=== PATIENT | female | born 1985 | race Caucasian/White ===

== ENCOUNTER 2021-03-22 10:33 | Emergency (ER) | payer BC, SELFPAY ==
--- NOTE | ~2021-03-22 | XR_ITS ---
EXAMINATION: XR ribs RT 2V EXAM DATE: 03/22/2021 11:23 INDICATION: Right side rib pain after twisting injury. TECHNIQUE: Frontal projection of the upper right ribs, frontal projection of the lower right ribs, ob lique projection of the right ribs, without chest x-ray(s) for interpretation. Correlation is made to Chest x-ray 11/29/2010 FINDINGS: There are no displaced acute right rib fractures identified. There is no soft tissue abno rmality seen. IMPRESSION: No displaced right rib fractures. Reviewed, dictated and finalized at location B.
[2021-03-22 10:45] VITALS: BP 120/100; PULSE 100; RESP 18; TEMP 36.7; O2SAT 100
--- NOTE | 2021-03-22 11:12 | ED.GENADULT ---
HPI - General Adult General Chief complaint: Unspecified Stated complaint: Rt side pain Source: patient Mode of arrival: ambulatory Limitations: no limitations History of Present Illness HPI narrative: Patient is a 36-year-old female who presents complaining of right rib/flank pain. She reports pain for approximately 8 days. She reports initially playing softball and believes that she twisted wrong . She reports awaking next morning with 10 out of 10 pain, reports nausea and vomiting x1 which has since resolved. She reports pain continues at approximately 3/10 and increases with movement. She reports taking [id number] medications with limited relief, reports using ice, heat etc. She denies abdominal pain, denies urinary complaints. She denies significant medical history. MD complaint: Rib pain Related Data Home Medications Medication Instructions Recorded Confirmed clonazepam 03/22/21 dextroamphetamine-amphetamine PO 03/22/21 dextroamphetamine-amphetamine PO 03/22/21 [Adderall XR] Allergies Allergy/AdvReac Type Severity Reaction Status Date / Time lansoprazole AdvReac Unknown Skin Verified 03/22/21 10:53 Reaction naproxen AdvReac Unknown nausea Verified 03/22/21 10:53 Review of Systems Review of Systems: CONSTITUTIONAL: Denies fever, chills, or sweats. EYES: Denies visual changes, redness, or discharge. ENT: Denies rhinorrhea, congestion, sore throat, or otalgia. CARDIOVASCULAR: Denies chest pain, palpitations, or edema. RESPIRATORY: Denies cough or dyspnea. GASTROINTESTINAL: Denies abdominal pain, nausea, vomiting, or diarrhea. GENITOURINARY: Denies dysuria or hematuria. SKIN: Denies rash or itching. MUSCULOSKELETAL: Reports right rib pain NEUROLOGIC: Denies headache, numbness, dizziness, or weakness. PSYCHIATRIC: Denies anxiety or depression. [facility] Family History Family History Other Family history of kidney stones Family history of malignant neoplasm Social History Social History Smoking status: Former smoker Alcohol intake: current Comments At the time of signature, I have reviewed and agree with nursing past medical, surgical, social, and family history unless otherwise noted. Please see nursing chart for further information. There is no relevant family history pertinent to the presenting complaint. Exam Narrative: GENERAL: Well-appearing, well-nourished, and in no acute distress. HEAD: Normocephalic, atraumatic. EYES: EOMI. No redness or drainage. Conjunctiva are normal. ENT: Mucous membranes pink and moist. CHEST: No respiratory distress. Clear to auscultation. HEART: Regular rate and rhythm. GI: Soft, nontender without rebound, or guarding. No distention. MUSCULOSKELETAL: Tenderness with palpation to right ribs EXTREMITIES: Normal range of motion. NEURO: No focal deficits. Alert and oriented x3. Gait steady. PSYCH: Normal affect. No signs of depression or anxiety. Course Vital Signs Vital signs: Vital Signs Temperature 36.7 C 03/22/21 10:45 Pulse Rate 100 03/22/21 10:45 Respiratory Rate 18 03/22/21 10:45 Blood Pressure 120/100 H 03/22/21 10:45 Pulse Oximetry 100 03/22/21 10:45 Temperature 36.7 C 03/22/21 10:45 Pulse Rate 100 03/22/21 10:45 Respiratory Rate 18 03/22/21 10:45 Blood Pressure 120/100 H 03/22/21 10:45 Pulse Oximetry 100 03/22/21 10:45 Reviewed-patient is informed that they may have pre-hypertension or hypertension based on a blood pressure reading. I recommend the patient call the primary care provider listed on their discharge instructions or a physician of their choice this week to arrange follow-up for further evaluation of possible pre-hypertension or hypertension. Medical Decision Making MDM Narrative Medical decision making narrative: Patient's x-ray ribs shows no acute injury. Patient has 3 less le
[2021-03-22] MEDS: KETOROLAC (*BKC) 60 MG/2 ML VIAL IM (12:03)
== END 2021-03-22 12:19 | disposition home or self-care (01) ==
PROVIDERS: Emergency Provider Nurse Practitioner
DX: R07.81 Pleurodynia (principal); Z87.891 Personal history of nicotine dependence
CPT/HCPCS: 71100; 81003; 96372; 99213; G0463; J1885

== ENCOUNTER 2021-12-03 11:29 | Emergency (ER) | payer OTHER, SELFPAY ==
[2021-12-03 11:41] VITALS: BP 119/78; PULSE 66; RESP 18; TEMP 36.4; O2SAT 100
--- NOTE | 2021-12-03 12:05 | ED.GENADULT ---
HPI - General Adult General Chief complaint: Abdominal Pain Stated complaint: Lower Rt Abdominal Pain Time Seen by Provider: 12/03/21 11:48 Source: patient Mode of arrival: ambulatory Limitations: no limitations History of Present Illness HPI narrative: 36-year-old female who presents to [facility] with complaints of right lower abdominal pain which started last night with increased intensity today. Patient reports she is nauseated has not had any vomiting did have 1 episode of diarrhea this morning. Patient reports she tried to eat a couple crackers and drink a little water around 1130 but nausea prevented any further attempts to eat. Patient has palpable right lower abdominal pain with McBurney point tenderness rates pain 8 out of 10. Patient has had cholecystectomy in the past and also tonsillectomy. MD complaint: Right lower abdominal pain Onset (ago): hour(s) (Last night) Severity scale (1-10): 8 Exacerbating factors: movement Treatments prior to arrival: NSAID Related Data Home Medications Medication Instructions Recorded Confirmed clonazepam 0.5 mg tablet 1 tablet BID 12/03/21 12/03/21 dextroamphetamine-amphetamine 10 1 tablet BID 12/03/21 12/03/21 mg tablet escitalopram oxalate 20 mg tablet 1 tablet BID 12/03/21 12/03/21 Allergies Allergy/AdvReac Type Severity Reaction Status Date / Time lansoprazole AdvReac Unknown Skin Verified 12/03/21 11:48 Reaction naproxen AdvReac Unknown nausea Verified 12/03/21 11:48 Review of Systems Review of Systems: CONSTITUTIONAL: Denies fever, chills, or sweats. EYES: Denies visual changes, redness, or discharge. ENT: Denies rhinorrhea, congestion, sore throat, or otalgia. CARDIOVASCULAR: Denies chest pain, palpitations, or edema. RESPIRATORY: Denies cough or dyspnea. GASTROINTESTINAL: Positive for right lower abdominal pain, nausea, no vomiting, 1 episode of diarrhea this morning. GENITOURINARY: Denies dysuria or hematuria. SKIN: Denies rash or itching. MUSCULOSKELETAL: Denies back pain, joint pain, or myalgia. NEUROLOGIC: Denies headache, numbness, or weakness. PSYCHIATRIC: Positive history of anxiety or depression. [facility] Past Medical History Medical History (Updated 12/03/21 @ 15:00 by Jennifer Pérez NP) ADHD (attention deficit hyperactivity disorder) Anxiety Depression Surgical History Surgical History (Updated 12/03/21 @ 12:18 by Jennifer Pérez NP) History of cholecystectomy History of tonsillectomy Family History Family History Other Family history of kidney stones Family history of malignant neoplasm Social History Social History Smoking status: Former smoker Alcohol intake: current Comments At time of signature, agree with nursing past medical, surgical, social and family history. There is no relevant family history pertinent to the presenting complaint Exam Narrative: GENERAL: Ill-appearing, well-nourished, and in no acute distress. HEAD: Normocephalic, atraumatic. EYES: PERRLA and EOMI. ENT: Nares clear, no rhinorrhea or epistaxis. Mucous membranes moist.TM's normal with good light reflex, throat pink NECK: Supple. No lymphadenopathy CHEST: Clear to auscultation. No respiratory distress.SAO2 100% on room air HEART: Regular rate and rhythm. No murmur heard. Normal peripheral pulses. ABDOMEN: Soft,tender right lower quadrant with McBurney point tenderness, nondistended, normal active bowel sounds. EXTREMITIES: Normal range of motion. No edema. SKIN: Warm, dry, no rash. NEURO: No focal deficits. Alert and oriented x3. Course Course Level of Care: Express Care Visit Vital Signs Vital signs: Vital Signs Temperature 36.4 C L 12/03/21 11:41 Pulse Rate 66 12/03/21 11:41 Respiratory Rate 18 12/03/21 11:41 Blood Pressure 119/78 12/03/21 11:41 Pulse Oximetry 100 12/03/21 11:41 Oxygen Delivery
== END 2021-12-03 12:12 | disposition short-term general hospital (02) ==
PROVIDERS: Emergency Provider Registered Nurse
DX: R10.31 Right lower quadrant pain (principal); Z87.891 Personal history of nicotine dependence; F90.9 Attention-deficit hyperactivity disorder, unspecified type; F41.9 Anxiety disorder, unspecified; F32.A Depression, unspecified
CPT/HCPCS: 99212; 99213; G0463

== ENCOUNTER 2021-12-03 12:25 | Inpatient (IN) | payer OTHER, SELFPAY ==
[2021-12-03] VITALS (15 sets, daily range): BP systolic 102–129; BP diastolic 50–86; PULSE 58–96; RESP 10–22; TEMP 36.7–37.3; O2SAT 99–100; BMI 17.6
--- NOTE | ~2021-12-03 | CT_ITS ---
EXAMINATION: CT abdomen pelvis w con INDICATION: Right lower quadrant pain TECHNIQUE: Computed tomographic images of the abdomen and pelvis were obtained after the administrati on of 98 cc of Omnipaque 300 intravenous contrast. The dose-length product (DLP) was 181.72 mGy-cm. A utomated exposure control and iterative reconstruction technique were employed. COMPARISON: 11/23/2013 FINDINGS: The lung bases are clear. The heart size is normal. The liver, spleen, pancreas, and adrena l glands are normal. There are changes of interval cholecystectomy. There is a 7 mm stone of the dist al right ureter which causes moderate hydroureteronephrosis. There is decreased perfusion of the righ t kidney compared to the left. Urothelial enhancement is seen in the distal ureter. There is a 1.5 cm cyst of the right kidney. The left kidney is unremarkable. No pathologically enlarged abdominal or p elvic lymph nodes are identified. There is no free intraperitoneal gas or evidence of bowel obstructi on. There is a small volume of free fluid in the pelvis. The appendix is normal. IMPRESSION: 1. 7 mm stone distal right ureter causing moderate hydroureteronephrosis. Urothelial enhancement and decreased perfusion of the right kidney are consistent with superimposed urinary tract infection/pyel onephritis. Reviewed, dictated and finalized at location A. IMPRESSION: 1. 7 mm stone distal right ureter causing moderate hydroureteronephrosis. Uroth elial enhancement and decreased perfusion of the right kidney are consistent wi th superimposed urinary tract infection/pyelonephritis.
--- NOTE | ~2021-12-03 | XR_ITS ---
EXAMINATION: XR stent kub - surgery DATE: 12/03/2021 17:24 CDT INDICATION: RIGHT STENT PLACEMENT . TECHNIQUE: 6 fluoroscopic images of the right abdomen were obtained during stent placement performed by the surgeon. I was not present in the operating room. Fluoroscopy exposure time was 28.1 seconds. Cumulative dose was 0.77690 mGy2. COMPARISON: CT abdomen pelvis 11/25/2021 FINDINGS: Contrast fills a moderately dilated right collecting system, with subsequent stent placement. Proxima l coil in the distal portion of the right renal pelvis. Distal coil is situated over the bladder. IMPRESSION: Fluoroscopic documentation of right ureteral stent placement. Please refer to the operative note for complete procedural details. . Reviewed, dictated and finalized at location K. IMPRESSION: Fluoroscopic documentation of right ureteral stent placement. Please refer to isabela robert operative note for complete procedural details. .
[2021-12-03 12:46] LABS: Basophils Percent Auto 0.3 % (0.2-1.2); Eosinophils Absolute Auto 0.1 K/mm3 (0-0.3); Eosinophils Percent Auto 0.5 % (0-4.4); Hematocrit 38.5 % (37.0-47.0); Hemoglobin 13.4 g/dL (12.0-15.0); Immature Granulocyte Absolute 0.02 K/mm3 (0.00-0.031); Immature Granulocyte Percent A 0.2 % (0-0.5); Lymphocytes Absolute Auto 1.42 K/mm3 (0.9-3.2); Mean Corpuscular HGB Conc 34.8 g/dl (32-36); Mean Corpuscular Volume 91.9 fl (80-100); Mean Platelet Volume 9.8 fl (7.4-10.4); Monocytes Absolute Auto 0.8 K/mm3 (0.1-0.6); Monocytes Percent Auto 7.4 % (2.6-8.5); Neutrophils Absolute Auto 8.6 K/mm3 (1.3-6.7); Neutrophils Percent Auto 78.6 % (45.5-73.1); Platelet Count Result 221 k/mm3 (150-375); Red Blood Count 4.19 M/mm3 (4.2-5.4); Red Cell Distribution Width 12.5 % (11.5-14.5); White Blood Count 10.9 K/mm3 (4.5-10.0)
--- NOTE | 2021-12-03 12:56 | ED.ABDPAIN ---
HPI - Abdominal Pain General Chief Complaint: Abdominal Pain Stated Complaint: LOWER ABD PAIN Time Seen by Provider: 12/03/21 12:47 History of Present Illness HPI narrative: Pt presents with RLQ abdominal pain since sometime in the middle of the night getting progressively worse. Pt has some nausea but no vomiting. Pt on menses now and is regular. No hx of appendectomy. Pt denies urinary symptoms. No worsening or relieving factors. Related Data Home Medications Medication Instructions Recorded Confirmed clonazepam 0.5 mg tablet 1 tablet BID 12/03/21 12/03/21 dextroamphetamine-amphetamine 10 1 tablet BID 12/03/21 12/03/21 mg tablet escitalopram oxalate 20 mg tablet 1 tablet BID 12/03/21 12/03/21 Allergies Allergy/AdvReac Type Severity Reaction Status Date / Time lansoprazole AdvReac Unknown Skin Verified 12/03/21 11:48 Reaction naproxen AdvReac Unknown nausea Verified 12/03/21 11:48 Review of Systems Review of Systems: All systems reviewed & are unremarkable except as noted in HPI and below PMFSH Past Medical History Medical History ADHD (attention deficit hyperactivity disorder) Anxiety Depression Surgical History Surgical History History of cholecystectomy History of tonsillectomy Family History Family History Other Family history of kidney stones Family history of malignant neoplasm Social History Social History Smoking status: Former smoker Alcohol intake: current Exam Const: General: healthy appearing Nutritional Appearance: thin Orientation/consciousness: patient oriented x3 Limitations: no limitations Eyes: EOM: EOMs intact bilaterally Neck: Neck: normal visual inspection Chest: Chest palpation & inspection: normal inspection of the chest Resp: Effort & Inspection: normal respiratory effort Auscultation: clear to auscultation bilaterally Cardio: Rate: regular rate Rhythm: regular rhythm GI: GI Palp: Yes Soft to palpation, Yes Tenderness to palpation present (GI) (rlq at [facility]), Yes Guarding due to palpation present (GI) and Yes Rebound tenderness present Auscultation: normal bowel sounds Skin: General skin exam: normal color Rashes: no rashes Wounds: no wounds Neuro: General: patient oriented x3, moves all extremities, no meningeal signs and no focal motor deficits Extrem: General: normal to inspection and no clubbing, cyanosis or edema Psych: Mental Status: mental status grossly normal Affect: normal affect Attitude: cooperative Course Course Emergency Course: d/w jenny [employer] will admit pt, d/w dr plunkett, urology, drank water at 1130, has some cheetos at 0930, will check with OR and likely take for stent placement Vital Signs Vital signs: Vital Signs Temperature 98.1 F 12/03/21 12:30 Pulse Rate 58 L 12/03/21 12:30 Respiratory Rate 22 H 12/03/21 12:30 Blood Pressure 129/70 12/03/21 12:30 Pulse Oximetry 100 12/03/21 12:30 Oxygen Delivery Room Air 12/03/21 12:30 Temperature 98.8 F 12/03/21 18:25 Pulse Rate 93 12/03/21 18:40 Respiratory Rate 14 12/03/21 18:40 Blood Pressure 106/67 12/03/21 18:40 Pulse Oximetry 100 12/03/21 18:40 Oxygen Delivery Room Air 12/03/21 18:40 Oxygen Flow Rate 6 12/03/21 17:43 MDM - Abdominal Pain Lab Data Result diagrams: 12/03/21 12:40 12/03/21 12:40 Labs: Lab Results 12/03/21 12/03/21 12/03/21 Range/Units 12:40 12:40 13:03 WBC 10.9 H (4.5-10.0) K/mm3 RBC 4.19 L (4.2-5.4) M/mm3 Hgb 13.4 (12.0-15.0) g/dL Hct 38.5 (37.0-47.0) % MCV 91.9 (80-100) fl MCH 32.0 (26-34) pg MCHC 34.8 (32-36) g/dl RDW 12.5 (11.5-14.5) % Plt Count 221 (150-375) k/mm3 MP
[2021-12-03] MEDS: ONDANSETRON INJ 4 MG/2 ML VIAL IV PUSH (13:09)
[2021-12-03] MEDS: SODIUM CHLORIDE 0.9% IV 1,000 ML 999 ML IV CONT (13:09)
[2021-12-03] MEDS: fentaNYL CITRATE INJ (*CRX) 100 MCG/2 ML VIAL 25 MCG IV PUSH (13:09)
[2021-12-03 14:25] LABS: Alanine Aminotransferase 14 U/L (6-35); Albumin Level 4.2 g/dL (3.5-5.1); Alkaline Phosphatase 82 U/L (38-126); Anion Gap 7 mmol/L (8-16); Aspartate Amino Transferase 25 U/L (14-36); Bilirubin,Total 0.8 mg/dL (0.2-1.3); Blood Urea Nitrogen 9 mg/dL (7-17); Calcium 8.8 mg/dL (8.4-10.2); Carbon Dioxide 25 mmol/L (22-30); Chloride 103 mmol/L (98-107); Estimated CRCL calculation 49 ml/min; Estimated Glomerular Filt Rate > 60; Glucose 105 mg/dL (65-110); Lipase 404 U/L (23-300); Potassium 3.6 mmol/L (3.4-5.0); Sodium 135 mmol/L (137-145)
[2021-12-03 14:34] LABS: Appearance Urine Clear (Clear); Bilirubin Urine Negative (Negative); Blood Urine 2+ (Negative); Color Urine Yellow (Yellow); Glucose Urine UA Negative (Negative); Ketones Urine 3+ mg/dL (Negative); Leukocyte Esterase Ur 2+ LEU/UL (Negative); Nitrate Urine Positive (Negative); Protein Urine Trace mg/dL (Negative); Specific Grav Ur 1.025 (1.001-1.035); Urobilinogen Urine 0.2 mg/dL (<2.0)
[2021-12-03] MEDS: MORPHINE SULFATE (*CRX) 4 MG/ML INJ IV PUSH (14:38)
[2021-12-03 14:40] LABS: Bacteria Urine 1+ /hpf; Mucus Urine Rare /lpf; RBC Urine 21-50 /hpf (0-2); WBC Clumps Urine Present /HPF; WBC Urine >75 /hpf
[2021-12-03 14:47] LABS: Add Urine Microscopic? YES
[2021-12-03 14:49] LABS: SPREG INTERNAL CONTROL Positive; Serum Qual hCG Negative
[2021-12-03] MEDS: cefTRIAXone 2 GM in SODIUM CHLORIDE 0.9% IV 100 ML 200 ML IVPB (16:25)
--- NOTE | 2021-12-03 16:55 | WPDANESEPP ---
Anes - Eval Pre Procedure Procedure: Operation Date: 12/03/21 17:30 Proposed Procedures p Cysto, Right RPG, Stent Placement(Right) - Ghulam Tena MD Date/Time: 12/03/21 16:55 Pre Op Diagnosis: LOWER ABD PAIN Patient Data Age: 36 Gender: F Height: 1.63 m Weight: 45.2 kg Last Vital Signs Temp 36.7 C 12/03/21 12:30 Pulse 81 12/03/21 16:27 Resp 18 12/03/21 16:27 BP 126/86 12/03/21 16:27 Pulse Ox 99 12/03/21 16:27 O2 Del Method Room Air 12/03/21 12:30 Allergies Allergy/AdvReac Type Severity Reaction Status Date / Time lansoprazole AdvReac Unknown Skin Verified 12/03/21 11:48 Reaction naproxen AdvReac Unknown nausea Verified 12/03/21 11:48 Home Medications Medication Instructions Recorded Confirmed Type clonazepam 0.5 mg tablet 1 tablet BID 12/03/21 12/03/21 History dextroamphetamine-amphetamine 10 1 tablet BID 12/03/21 12/03/21 History mg tablet escitalopram oxalate 20 mg tablet 1 tablet BID 12/03/21 12/03/21 History Laboratory Tests 12/03/21 12/03/21 12/03/21 12:40 12:40 13:03 WBC 10.9 K/mm3 H K/mm3 (4.5-10.0) RBC 4.19 M/mm3 L M/mm3 (4.2-5.4) Hgb 13.4 g/dL g/dL (12.0-15.0) Hct 38.5 % % (37.0-47.0) MCV 91.9 fl fl (80-100) MCH 32.0 pg pg (26-34) MCHC 34.8 g/dl g/dl (32-36) RDW 12.5 % % (11.5-14.5) Plt Count 221 k/mm3 k/mm3 (150-375) MPV 9.8 fl fl (7.4-10.4) Immature Gran % (Auto) 0.2 % % (0-0.5) Neut % (Auto) 78.6 % H % (45.5-73.1) Lymph % (Auto) 13.0 % L % (18.3-44.2) [place] % (Auto) 7.4 % % (2.6-8.5) Eos % (Auto) 0.5 % % (0-4.4) Baso % (Auto) 0.3 % % (0.2-1.2) Lymph # (Auto) 1.42 K/mm3 K/mm3 (0.9-3.2) [place] # (Auto) 0.8 K/mm3 H K/mm3 (0.1-0.6) Eos # (Auto) 0.1 K/mm3 K/mm3 (0-0.3) Baso # (Auto) 0.0 K/mm3 K/mm3 (0.0-0.1) Abs Immat Gran (auto) 0.02 K/mm3 K/mm3 (0.00-0.031) Absolute Neuts (auto) 8.6 K/mm3 H K/mm3 (1.3-6.7) Absolute Nucleated RBC 0.0 K/mm3 K/mm3 (0.0-0.012) Nucleated RBC % 0.0 % % (0.0-0.2) Sodium 135 mmol/L L mmol/L (137-145) Potassium 3.6 mmol/L mmol/L (3.4-5.0) Chloride 103 mmol/L mmol/L (98-107) Carbon Dioxide 25 mmol/L mmol/L (22-30) Anion Gap 7 mmol/L L mmol/L (8-16) BUN 9 mg/dL mg/dL (7-17) Creatinine 1.00 mg/dL mg/dL (0.7-1.0) Estim Creat Clear Calc 49 ml/min ml/min Estimated GFR > 60 (59 - ) Glucose 105 mg/dL mg/dL (65-110) Calcium 8.8 mg/dL mg/dL (8.4-10.2) Total Bilirubin 0.8 mg/dL mg/dL (0.2-1.3) AST 25 U/L U/L (14-36) ALT 14 U/L U/L (6-35) Alkaline Phosphatase 82 U/L U/L (38-126) Total Protein 7.0 g/dL g/dL (6.3-8.2) Albumin 4.2 g/dL g/dL (3.5-5.1) Lipase 404 U/L H U/L (23-300) Serum HCG, Qual Negative Urine Color Urine Appearance Urine pH Ur Specific [place] Urine Protein Urine Glucose (UA) Urine Ketones Ur Blood (Man) Urine Nitrate Urine Bilirubin Urine Urobilinogen Leukocyte Esterase Rfl Urine RBC Urine WBC Urine WBC Clumps Urine Bacteria Urine Mucus 12/03/21 14:24 WBC RBC Hgb Hct MCV MCH MCHC RDW Plt Count MPV Immature Gran % (Auto) Neut % (Auto) Lymph % (Auto) [place] % (Auto) Eos % (Auto) Baso % (Auto) Lymph # (Auto) [place] # (Auto) Eos # (Auto) Baso # (Auto) Abs Immat Gran (auto)
--- NOTE | 2021-12-03 17:07 | PM.IMHP ---
H&P: HPI History of Present Illness Date/Time: 12/03/21 17:07 Chief Complaint: Right renal colic with obstructing right ureteral stone, hydronephrosis and UTI Narrative: 36-year-old female who developed the acute onset of right lower quadrant pain as well as right flank pain yesterday. She is afebrile here but thought she had a low-grade fever at home. Denies any dysuria. Has a question of whether she had a prior stone in the past. Evaluation in the emergency room with a CT scan revealed marked right hydroureter to a 7 mm obstructing distal stone. Her urinalysis also appears infected. Given these findings will proceed with cysto, right retrograde pyelogram, right stent placement. Review of Systems Review of Systems: All systems reviewed & are unremarkable except as noted in HPI and below PMFSH Past Medical History Medical History ADHD (attention deficit hyperactivity disorder) Anxiety Depression Surgical History Surgical History History of cholecystectomy History of tonsillectomy Family History Family History Other Family history of kidney stones Family history of malignant neoplasm Social History Social History Smoking status: Former smoker Alcohol intake: current Meds Home Medications and Allergies Home Medications Medication Instructions Recorded Confirmed Type clonazepam 0.5 mg tablet 1 tablet BID 12/03/21 12/03/21 History dextroamphetamine-amphetamine 10 1 tablet BID 12/03/21 12/03/21 History mg tablet escitalopram oxalate 20 mg tablet 1 tablet BID 12/03/21 12/03/21 History Allergies Allergy/AdvReac Type Severity Reaction Status Date / Time lansoprazole AdvReac Unknown Skin Verified 12/03/21 11:48 Reaction naproxen AdvReac Unknown nausea Verified 12/03/21 11:48 Vital Signs Vital Signs - 24 hr 12/03/21 12:30 12/03/21 16:27 Temperature 36.7 C Pulse Rate 58 L 81 Respiratory Rate 22 H 18 Blood Pressure 129/70 126/86 Pulse Oximetry 100 99 Oxygen Delivery Room Air Exam Const: General: cooperative; No comfortable Orientation/consciousness: patient oriented x3 HENMT: Head: normal to inspection Eyes: General: appearance normal, both eyes and all related structures Neck: Neck: normal visual inspection Resp: Effort & Inspection: able to speak in complete sentences Cardio: Rate: regular rate Rhythm: regular rhythm GI: Inspection: normal to inspection GI Palp: Yes Soft to palpation H&P: Results Labs Labs: Short CBC 12/03/21 Range/Units 12:40 WBC 10.9 H (4.5-10.0) K/mm3 Hgb 13.4 (12.0-15.0) g/dL Hct 38.5 (37.0-47.0) % Plt Count 221 (150-375) k/mm3 BMP 12/03/21 12:40 Sodium 135 L Potassium 3.6 Chloride 103 Carbon Dioxide 25 BUN 9 Creatinine 1.00 Glucose 105 Calcium 8.8 Liver Function 12/03/21 Range/Units 12:40 Total Bilirubin 0.8 (0.2-1.3) mg/dL AST 25 (14-36) U/L ALT 14 (6-35) U/L Alkaline Phosphatase 82 (38-126) U/L Albumin 4.2 (3.5-5.1) g/dL Urine 12/03/21 Range/Units 14:24 Urine Color Yellow (Yellow) Urine Appearance Clear (Clear) Urine pH 6.0 (5.0-9.0) Ur Specific [place] 1.025 (1.001-1.035) Urine Protein Trace (Negative) mg/dL Urine Glucose (UA) Negative (Negative) mg/dL Assessment and Plan Assessment and plan (1) Ureterolithiasis: Code(s): N20.1 - Calculus of ureter Status: Acute Assessment and Plan: Given concurrent infection, will plan on cysto right retrograde, right stent placement. Definitive stone treatment at a later point time. Patient and her are aware that if the stent cannot be placed she will require a percutaneous nephrostomy tube. They are in agreement a
--- NOTE | 2021-12-03 17:12 | WPDHPUPDATE1 ---
History and Physical Update Update Date/Time: 12/03/21 17:12 History and Physical has been reviewed, including an updated exam of the patient. There are NO changes in the patient's condition. Risks, benefits, and alternatives have been discussed and questions answered. Patient agrees to proceed with procedure. Proceed with cystoscopy, right retrograde pyelogram, right ureteral stent placement.
--- NOTE | 2021-12-03 17:24 | P.PNAN_ITS ---
Anes - Eval Final PreProcedure Day of Procedure 12/03/21 17:24 Patient weight: thin Heart: regular rate and rhythm Lungs: clear to auscultation Airway: Mallampati scale class II Neurological: alert and oriented Last oral intake: >/= 8 hours ASA classification: II Emergent: yes Anesthetic plan: proceed Anesthesia type and monitoring: general LMA and standard monitoring Results Review: All pre-operative results and documents have been reviewed as part of the pre- operative evaluation. Informed Consent: The patient's anesthetic plan and its attendant risks and benefits were discussed with the patient/family/POA. Questions were solicited and answers provided to the satisfaction of the patient/family/POA.
[2021-12-03] MEDS: LIDOCAINE HCL 2% GEL UROJET 10 ML PKG MUCOUS MEM (17:31)
--- NOTE | 2021-12-03 17:38 | P.OP_ITS ---
Procedure Note - Detailed Date of Procedure 12/03/21 Pre-op Diagnosis Right URETEROLITHIASIS/PYELONEPHRITIS Post-op Diagnosis Same Procedure Performed Cystoscopy, right distal ureteroscopy floor placement of wire, right ureteral stent placement 6 Pakistani contour, extraction of urine from right renal pelvis for culture Surgeon Ghulam Tena MD Anesthesia General Description of Procedure Patient is taken to the operative suite correctly identified. Once anesthesia was obtained she was placed in dorsal lithotomy position and prepped draped usual sterile fashion. Twenty-two Pakistani scope inserted the bladder. She had cloudy. Urine. There were no tumors noted. The right ureteral orifice is raised. We could not place a wire past the stone initially. We thus used a rigid ureteral scope and inserted it into the ureteral opening. The stone was visualized. We were able to manipulate a guidewire past that. A [place] was then inserted all the way up to the renal pelvis. We aspirated 15 cc of urine from the renal pelvis and sent it for culture. A [employer] wire was then passed through the [place] up into the right renal pelvis. A 6 Pakistani contour stent was then placed with the proximal end coiled in the renal pelvis and the distal in the bladder. Bladder was drained. 2% viscous lidocaine was inserted urethra patient is taken recovery stable condition. She will be admitted for IV antibiotics and monitoring. We will plan on dealing with the distal ureteral stone with ureteroscopy when she gets over this infection and has a negative urine culture. Drains Yes (Six Pakistani contour stent) Packing No Pathology Yes (Urine from right renal pelvis) Complications No immediate complications Condition Stable Disposition PACU
--- NOTE | 2021-12-03 17:38 | SUR.OPER ---
Urine culture sent with Yana Lainez RN to pathology
[2021-12-03] MEDS: LACTATED RINGERS 1,000 ML 30 ML IV CONT (17:43)
--- NOTE | 2021-12-03 18:19 | SUR.PHASEI ---
PT AWAKE AND ALERT. TALKATIVE WITH SPOUSE. DENIES PAIN OR NAUSEA.
--- NOTE | 2021-12-03 18:41 | SUR.PHASEI ---
CALLED DR FAIRBANKS, ADMIT PT TO IMU
--- NOTE | 2021-12-03 19:45 | ADMGEN ---
This patient, Amber Thomas, was admitted to IMU Room 212-01 at 1945 on 12/03/2021. Patient/family oriented to hospital policies and general routines including ID bracelet, bed and alarms, visiting hours, pain management, procedures, bathroom and other care routines, personal items, smoking policy, room service/diet, and visiting hours. Information on how to activate the Rapid Response Team has been discussed. Patient/Family are encouraged to report perceived risks to care and to ask questions if they do not understand what they are told or what they should do.
--- NOTE | 2021-12-03 20:32 | PM.IMHP ---
H&P: HPI History of Present Illness Date/Time: 12/03/21 20:32 Chief Complaint: flank pain Narrative: this is a 36-year-old female past medical history significant for tobacco dependence, ADHD, anxiety, depression. Patient presents to the emergency room due to right-sided flank pain with radiation to the groin area started in the morning got progressively worse over the course of the day had some nausea but no vomiting rates the pain at 7/10 intensity denies any pain or burning with urination denies any blood in the urine. Patient denies any fevers, rigors, chills, she has been her usual state of health up until this. In emergency room patient was found to have a stone. At the time of my visit patient was status post situs copy with retrograde pyelogram and stent placement. Review of Systems Review of Systems: Right flank pain Constitutional: Constitutional: Denies chills, Denies fever(s), Denies malaise and Denies weakness Eyes: Eyes: Denies change in vision ENT: Denies dysphagia, Denies vertigo, Denies dizziness and Denies odynophagia Cardiovascular: Cardiovascular: Denies chest pain, Denies syncope, Denies irregular heart rhythm, Denies lightheadedness, Denies palpitations and Denies dyspnea on exertion Respiratory: Respiratory: Denies chest congestion and Denies excessive phlegm production Gastrointestinal: Gastrointestinal: Denies dyspepsia, Denies heartburn, Denies diarrhea, Reports nausea and Denies vomiting Genitourinary: Genitourinary: Denies dysuria and Reports flank pain Musculoskeletal: Musculoskeletal: Denies myalgias, Denies arthralgias, Denies joint swelling, Denies limited range of motion and Denies muscle weakness Integumentary/Breasts: Skin/Breast: Denies rash Neurologic: Denies focal weakness and Denies Sensory deficit (Neuro) Psychiatric: Psychiatric: Reports no additional psychiatric complaints and Reports as per HPI Endocrine: Endocrine: Denies cold intolerance, Denies fatigue, Denies flushing, Denies heat intolerance, Denies polyphagia, Denies polydipsia and Denies palpitations Hematologic/Lymphatic: Hematologic/Lymphatic: Reports no additional hematologic/lymphatic complaints and Reports as per HPI Allergic/Immunologic: Allergic/Immunologic: Reports no additional allergic/immunologic complaints and Reports as per HPI [facility] Past Medical History Medical History ADHD (attention deficit hyperactivity disorder) Anxiety Depression Surgical History Surgical History History of cholecystectomy History of tonsillectomy Family History Family History Other Family history of kidney stones Family history of malignant neoplasm Social History Social History Smoking status: Former smoker Alcohol intake: never Substance use: never Spiritual care concerns: No Meds Home Medications and Allergies Home Medications Medication Instructions Recorded Confirmed Type clonazepam 0.5 mg tablet 1 tablet BID PRN Anxiety 12/03/21 12/03/21 History dextroamphetamine-amphetamine 10 1 tablet BID 12/03/21 12/03/21 History mg tablet escitalopram oxalate 20 mg tablet 1 tablet PO DAILY 12/03/21 12/03/21 History ciprofloxacin HCl 500 mg tablet 500 mg PO Q12H #14 tabs 12/05/21 Rx (Cipro) oxybutynin chloride 5 mg tablet 5 mg PO TID PRN Abdominal Cramping 12/05/21 Rx #30 tabs tramadol 50 mg tablet (Ultram) 50 mg PO Q6H PRN pain #20 tabs 12/05/21 Rx Allergies Allergy/AdvReac Type Severity Reaction Status Date / Time lansoprazole AdvReac Unknown Skin Verified 12/03/21 19:07 Reaction naproxen AdvReac Unknown nausea Verified 12/03/21 19:07 Vital Signs Vital Signs - 24 hr 12/03/21 12:30 12/03/21 16:27 12/03/21 17:43 Temperature 98.1 F 9
[2021-12-03] MEDS: DEXTROSE 5%/LACTATED RINGERS 1,000 ML 125 ML IV CONT (21:04)
[2021-12-03] MEDS: levoFLOXacin 500 MG/D5W 100 ML 500 MG/100 ML BAG 100 MG IVPB (21:05)
[2021-12-03] MEDS: MORPHINE SULFATE (*CRX) 2 MG/ML INJ IV PUSH (21:06)
[2021-12-04] VITALS (9 sets, daily range): BP systolic 100–119; BP diastolic 53–67; PULSE 89–101; RESP 14–18; TEMP 36.4–37.9; O2SAT 90–100; BMI 17.9
[2021-12-04] MEDS: MORPHINE SULFATE (*CRX) 2 MG/ML INJ IV PUSH (02:01)
[2021-12-04 05:16] LABS: Basophils Percent Auto 0.1 % (0.2-1.2); Eosinophils Percent Auto 0.1 % (0-4.4); Hemoglobin 12.5 g/dL (12.0-15.0); Immature Granulocyte Absolute 0.12 K/mm3 (0.00-0.031); Immature Granulocyte Percent A 0.8 % (0-0.5); Lymphocytes Absolute Auto 0.65 K/mm3 (0.9-3.2); Lymphocytes Percent Auto 4.4 % (18.3-44.2); Mean Corpuscular HGB Conc 35.7 g/dl (32-36); Mean Corpuscular Hemoglobin 32.4 pg (26-34); Mean Corpuscular Volume 90.7 fl (80-100); Mean Platelet Volume 10.1 fl (7.4-10.4); Monocytes Absolute Auto 0.9 K/mm3 (0.1-0.6); Neutrophils Absolute Auto 13.1 K/mm3 (1.3-6.7); Neutrophils Percent Auto 88.6 % (45.5-73.1); Platelet Count Result 190 k/mm3 (150-375); Red Blood Count 3.86 M/mm3 (4.2-5.4); Red Cell Distribution Width 12.5 % (11.5-14.5); White Blood Count 14.8 K/mm3 (4.5-10.0)
[2021-12-04] MEDS: DEXTROSE 5%/LACTATED RINGERS 1,000 ML 125 ML IV CONT (06:07)
[2021-12-04] MEDS: HYDROcodone/acetaminophen (*CRX) 5-325 MG TABLET 2 TAB PO ×2 (06:26→17:33)
--- NOTE | 2021-12-04 08:23 | WPDUROPN2 ---
Progress Note: A&P Assessment and Plan (1) Ureterolithiasis: Code(s): N20.1 - Calculus of ureter Status: Acute Assessment and Plan: Overall doing well post stent placement. Once gets over acute infection will deal with the stone with ureteroscopy in approximately 10 days. Will need a negative urine culture. Place on oxybutynin for some stent irritation. (2) Pyelonephritis: Code(s): N12 - Tubulo-interstitial nephritis, not specified as acute or chronic Status: Acute Assessment and Plan: White count slightly elevated today at 14,000 which is not unexpected after the procedure. She has remains afebrile and is hemodynamically stable. Continue with antibiotics. Repeat CBC in the morning. If shows downward trend and remains afebrile will discharge home tomorrow. Subjective Subjective Date/Time Seen: 12/04/21 08:23 Post Op day: 1 (Cysto, right stent placement) Principal diagnosis: Obstructing right ureteral calculus with pyelonephritis. Interval history: Overall doing well but is having some irritation form what appears to be the stent. Review of Systems Review of Systems: All systems reviewed & are unremarkable except as noted in HPI and below Exam Const: General: cooperative Resp: Effort & Inspection: normal respiratory effort Cardio: Rate: regular rate Rhythm: regular rhythm Objective Data Vital Signs Vital Signs: Vital Signs - 24 hr 12/03/21 12:30 12/03/21 16:27 12/03/21 17:43 Temperature 36.7 C 37.3 C Pulse Rate 58 L 81 90 Respiratory Rate 22 H 18 14 Blood Pressure 129/70 126/86 114/73 Pulse Oximetry 100 99 100 Oxygen Delivery Room Air Simple Face Mask Oxygen Flow Rate 6 12/03/21 17:55 12/03/21 18:10 12/03/21 18:25 Temperature 37.1 C Pulse Rate 85 85 90 Respiratory Rate 14 14 12 Blood Pressure 102/75 114/70 106/66 Pulse Oximetry 100 100 100 Oxygen Delivery Room Air Room Air Room Air Oxygen Flow Rate 12/03/21 18:40 12/03/21 18:55 12/03/21 19:10 Temperature Pulse Rate 93 90 92 Respiratory Rate 14 12 14 Blood Pressure 106/67 108/63 104/66 Pulse Oximetry 100 100 100 Oxygen Delivery Room Air Room Air Room Air Oxygen Flow Rate 12/03/21 20:00 12/03/21 20:00 12/03/21 22:00 Temperature 36.7 C Pulse Rate 83 96 Respiratory Rate 12 Blood Pressure 111/56 L Pulse Oximetry 99 Oxygen Delivery Room Air Oxygen Flow Rate 12/03/21 20:00 12/03/21 21:14 12/03/21 20:15 Temperature 36.9 C 36.8 C Pulse Rate 87 93 85 Respiratory Rate 20 10 L Blood Pressure 104/53 L 110/50 L Pulse Oximetry 99 99 Oxygen Delivery Oxygen Flow Rate 12/03/21 20:30 12/03/21 22:51 12/03/21 20:00 Temperature 36.8 C 36.9 C Pulse Rate 90 93 87 Respiratory Rate 12 20 Blood Pressure 106/60 104/53 L Pulse Oximetry 100 99 Oxygen Delivery Oxygen Flow Rate 12/04/21 00:00 12/04/21 00:00 12/04/21 00:00 Temperature 37.1 C Pulse Rate 96 101 H Respiratory Rate 16 Blood Pressure 102/53 L Pulse Oximetry 100 Oxygen Delivery Room Air Oxygen Flow Rate 12/04/21 02:00 12/04/21 04:00 12/04/21 04:00 Temperature Pulse Rate 94 97 Respiratory Rate Blood Pressure Pulse Oximetry Oxygen Delivery Room Air Oxygen Flow Rate 12/04/21 06:00 12/04/21 06:28 12/04/21 04:00 Temperature 37.4 C Pulse Rate 98 90 Respiratory Rate 14 Blood Pressure 119/67 Pulse Oximetry 97 90 Oxygen Delivery Oxygen Flow Rate Intake/Output Intake/Output: Intake & Output 12/01/21 12/02/21 12/03/21 12/04/21 23:59 23:59 23:59 23:59 Intake Total 1600 1210 Output Total 1400 Balance 1600 -190 Meds/Results Medications: Active Medications Generic Name Dose Route Start Last Admin Trade Name Freq PRN Reason Stop Dose Admin Hydrocodone Bitart/Acetaminophen 1 tab 12/04/21 05:00 Hydrocodone/Acetaminophen (*Crx) 5-325 Mg Tablet PO Q4H PRN Pain Rated 1-3 Hydrocodone Bitart/A
[2021-12-04] MEDS: ESCITALOPRAM OXALATE 10 MG TABLET 20 MG PO (09:18)
[2021-12-04] MEDS: ENOXAPARIN 40 MG/0.4 ML SYRINGE SUB-Q (09:19)
--- NOTE | 2021-12-04 09:45 | WPDANESPN ---
Anes - Prog Note Post-Op Date/Time: 12/04/21 09:45 Vital Signs: Last Vital Signs Temp 36.4 C 12/04/21 08:00 Pulse 93 12/04/21 08:00 Resp 14 12/04/21 08:00 BP 104/57 L 12/04/21 08:00 Pulse Ox 100 12/04/21 08:00 O2 Del Method Room Air 12/04/21 04:00 O2 Flow Rate 6 12/03/21 17:43 Pain Score (VAS): 0 I/O: Intake & Output 12/03/21 12/04/21 12/04/21 23:59 07:59 15:59 Intake Total 600 1210 Output Total 1400 Balance 600 -190 Laboratory Tests 12/04/21 04:58 12/03/21 12:40 12/03/21 12/03/21 12/03/21 12:40 12:40 13:03 WBC 10.9 H RBC 4.19 L Hgb 13.4 Hct 38.5 MCV 91.9 MCH 32.0 MCHC 34.8 RDW 12.5 Plt Count 221 MPV 9.8 Immature Gran % (Auto) 0.2 Neut % (Auto) 78.6 H Lymph % (Auto) 13.0 L [place] % (Auto) 7.4 Eos % (Auto) 0.5 Baso % (Auto) 0.3 Lymph # (Auto) 1.42 [place] # (Auto) 0.8 H Eos # (Auto) 0.1 Baso # (Auto) 0.0 Abs Immat Gran (auto) 0.02 Absolute Neuts (auto) 8.6 H Absolute Nucleated RBC 0.0 Nucleated RBC % 0.0 Sodium 135 L Potassium 3.6 Chloride 103 Carbon Dioxide 25 Anion Gap 7 L BUN 9 Creatinine 1.00 Estim Creat Clear Calc 49 Estimated GFR > 60 Glucose 105 Calcium 8.8 Total Bilirubin 0.8 AST 25 ALT 14 Alkaline Phosphatase 82 Total Protein 7.0 Albumin 4.2 Lipase 404 H Serum HCG, Qual Negative Urine Color Urine Appearance Urine pH Ur Specific [place] Urine Protein Urine Glucose (UA) Urine Ketones Ur Blood (Man) Urine Nitrate Urine Bilirubin Urine Urobilinogen Leukocyte Esterase Rfl Urine RBC Urine WBC Urine WBC Clumps Urine Bacteria Urine Mucus 12/03/21 12/04/21 14:24 04:58 WBC 14.8 H RBC 3.86 L Hgb 12.5 Hct 35.0 L MCV 90.7 MCH 32.4 MCHC 35.7 RDW 12.5 Plt Count 190 MPV 10.1 Immature Gran % (Auto) 0.8 H Neut % (Auto) 88.6 H Lymph % (Auto) 4.4 L [place] % (Auto) 6.0 Eos % (Auto) 0.1 Baso % (Auto) 0.1 L Lymph # (Auto) 0.65 L [place] # (Auto) 0.9 H Eos # (Auto) 0.0 Baso # (Auto) 0.0 Abs Immat Gran (auto) 0.12 H Absolute Neuts (auto) 13.1 H Absolute Nucleated RBC 0.0 Nucleated RBC % 0.0 Sodium Potassium Chloride Carbon Dioxide Anion Gap BUN Creatinine Estim Creat Clear Calc Estimated GFR Glucose Calcium Total Bilirubin AST ALT Alkaline Phosphatase Total Protein Albumin Lipase Serum HCG, Qual Urine Color Yellow Urine Appearance Clear Urine pH 6.0 Ur Specific [place] 1.025 Urine Protein Trace Urine Glucose (UA) Negative Urine Ketones 3+ H Ur Blood (Man) 2+ H Urine Nitrate Positive H Urine Bilirubin Negative Urine Urobilinogen 0.2 Leukocyte Esterase Rfl 2+ H Urine RBC 21-50 H Urine WBC >75 H Urine WBC Clumps Present H Urine Bacteria 1+ H Urine Mucus Rare Patient Feedback: Patient satisfied with anesthetic care.
--- NOTE | 2021-12-04 10:44 | PC.NURSE ---
This patient, Amber Thomas, was transferred to [facility] on 12/04/21 at 1044. Personal belongings sent with patient. Report given to Maria Eugenia VASQUEZ. Appropriate documentation sent with patient.
[2021-12-04] MEDS: HYDROcodone/acetaminophen (*CRX) 5-325 MG TABLET 1 TAB PO (10:55)
--- NOTE | 2021-12-04 11:11 | PC.NURSE ---
This patient, Amber Thomas, was received from IMU on 12/04/21 at 1105. Patient/family oriented to unit policies and routines
[2021-12-04] MEDS: ONDANSETRON INJ 4 MG/2 ML VIAL IV PUSH (16:12)
[2021-12-04] MEDS: levoFLOXacin 500 MG/D5W 100 ML 500 MG/100 ML BAG 100 MG IVPB (21:03)
[2021-12-04] MEDS: DEXTROSE 5%/LACTATED RINGERS 1,000 ML 50 ML IV CONT (21:05)
[2021-12-05] MEDS: HYDROcodone/acetaminophen (*CRX) 5-325 MG TABLET 2 TAB PO ×3 (01:11→11:49)
[2021-12-05 05:48] VITALS: BP 102/66; PULSE 86; RESP 16; TEMP 36.6; O2SAT 97
--- NOTE | 2021-12-05 07:44 | WPDUROPN2 ---
Progress Note: A&P Assessment and Plan (1) Ureterolithiasis: Code(s): N20.1 - Calculus of ureter Status: Acute Assessment and Plan: Status post right ureteral stent placement. Will need ureteroscopy with laser stone and stone extraction possibly next Thursday pending and negative urine culture. Most likely discharge home later today. (2) UTI (urinary tract infection): Code(s): N39.0 - Urinary tract infection, site not specified Status: Acute Assessment and Plan: Urine culture from renal pelvis showed no significant growth however her initial catheterized specimen from her bladder revealed Gram-negative bacilli. Full identification was sensitivities are pending at this time. Patient has been afebrile. If white count is decreasing will discharge home with oral antibiotics and repeat culture on Thursday. Subjective Subjective Date/Time Seen: 12/05/21 07:44 Principal diagnosis: Obstructing right ureteral calculus with UTI Interval history: Feeling a little better today. Afebrile. Labs are pending. Continues to have some right flank discomfort most likely secondary to stent irritation. Review of Systems Review of Systems: All systems reviewed & are unremarkable except as noted in HPI and below Exam Const: General: cooperative and no acute distress Resp: Effort & Inspection: normal respiratory effort Objective Data Vital Signs Vital Signs: Vital Signs - 24 hr 12/04/21 08:00 12/04/21 08:00 12/04/21 16:00 Temperature 36.4 C 37.9 C H Pulse Rate 93 97 Respiratory Rate 14 18 Blood Pressure 104/57 L 100/54 L Pulse Oximetry 100 96 Oxygen Delivery Room Air 12/04/21 20:20 12/04/21 21:42 12/05/21 05:48 Temperature 37.5 C 36.6 C Pulse Rate 97 89 86 Respiratory Rate 18 16 16 Blood Pressure 100/62 102/66 Pulse Oximetry 96 96 97 Oxygen Delivery Room Air Intake/Output Intake/Output: Intake & Output 12/02/21 12/03/21 12/04/21 12/05/21 23:59 23:59 23:59 23:59 Intake Total 1600 2450 300 Output Total 2400 400 Balance 1600 50 -100 Meds/Results Medications: Active Medications Generic Name Dose Route Start Last Admin Trade Name Freq PRN Reason Stop Dose Admin Hydrocodone Bitart/Acetaminophen 1 tab 12/04/21 05:00 12/04/21 10:55 Hydrocodone/Acetaminophen (*Crx) 5-325 Mg Tablet PO 1 tab Q4H PRN Administration Pain Rated 1-3 Hydrocodone Bitart/Acetaminophen 2 tab 12/04/21 05:00 12/05/21 01:11 Hydrocodone/Acetaminophen (*Crx) 5-325 Mg Tablet PO 2 tab Q4H PRN Administration Pain Rated 4-6 Clonazepam 0.5 mg 12/04/21 01:36 Clonazepam (*Crx) 0.5 Mg Tablet BY MOUTH BID PRN Anxiety Enoxaparin Sodium 40 mg 12/04/21 09:00 12/04/21 09:19 Enoxaparin 40 Mg/0.4 Ml Syringe SUB-Q 40 mg DAILY JOSE Administration Escitalopram Oxalate 20 mg 12/04/21 09:00 12/04/21 09:18 Escitalopram Oxalate 10 Mg Tablet PO 20 mg DAILY JOSE Administration Dextrose/Lactated Ringer's 1,000 mls @ 50 mls/hr 12/03/21 19:29 12/04/21 21:05 Dextrose 5%/Lactated Ringers IV CONT 50 mls/hr .Q20H JOSE Administration Levofloxacin/Dextrose 500 mg in 100 mls @ 100 mls/hr 12/03/21 21:00 12/04/21 21:03 Levaquin 500 Mg/D5w 100 Ml IVPB 100 mls/hr Q24H JOSE Administration Morphine Sulfate 2 mg 12/03/21 20:33 12/04/21 02:01 Morphine Sulfate (*Crx) 2 Mg/Ml Inj IV PUSH 2 mg Q3H PRN Administration Pain Naloxone HCl 0.1 mg 12/03/21 19:29 Naloxone Hcl 0.4 Mg/Ml Vial IV PUSH Q2M PRN Opiate Reversal Ondansetron HCl 4 mg 12/03/21 17:24 12/04/21 16:12 Ondansetron Inj 4 Mg/2 Ml Vial IV PUSH 4 mg ONCE PRN Administration Nausea Oxybutynin Chloride 5 mg 12/04/21 08:25 Oxybutynin Chloride 5 Mg Tablet PO TID PRN Abdominal Cramping Radiology Results: ITS Impressions Abdomen/Pelvis CT 12/03/21 15:10 IMPRESSION: 1. 7 mm stone distal right ureter causing moder
[2021-12-05] MEDS: ESCITALOPRAM OXALATE 10 MG TABLET 20 MG PO (07:48)
[2021-12-05] MEDS: ENOXAPARIN 40 MG/0.4 ML SYRINGE SUB-Q (07:50)
[2021-12-05] MEDS: OXYBUTYNIN CHLORIDE 5 MG TABLET PO (07:50)
[2021-12-05 08:58] LABS: Basophils Percent Auto 0.2 % (0.2-1.2); Eosinophils Absolute Auto 0.1 K/mm3 (0-0.3); Eosinophils Percent Auto 0.8 % (0-4.4); Hematocrit 34.5 % (37.0-47.0); Hemoglobin 11.8 g/dL (12.0-15.0); Immature Granulocyte Absolute 0.16 K/mm3 (0.00-0.031); Immature Granulocyte Percent A 1.4 % (0-0.5); Lymphocytes Absolute Auto 0.73 K/mm3 (0.9-3.2); Lymphocytes Percent Auto 6.6 % (18.3-44.2); Mean Corpuscular HGB Conc 34.2 g/dl (32-36); Mean Corpuscular Hemoglobin 31.9 pg (26-34); Mean Corpuscular Volume 93.2 fl (80-100); Mean Platelet Volume 10.9 fl (7.4-10.4); Monocytes Absolute Auto 0.8 K/mm3 (0.1-0.6); Monocytes Percent Auto 7.3 % (2.6-8.5); Neutrophils Absolute Auto 9.3 K/mm3 (1.3-6.7); Neutrophils Percent Auto 83.7 % (45.5-73.1); Platelet Count Result 146 k/mm3 (150-375); Red Cell Distribution Width 12.7 % (11.5-14.5); White Blood Count 11.1 K/mm3 (4.5-10.0)
[2021-12-05 11:51] VITALS: TEMP 36.9
--- NOTE | 2021-12-05 12:45 | PM.DS ---
DS: Admitting Diagnosis Discharge Date Right Ureteral Stone Admitting Diagnosis Right Ureteral Stone DS: Discharge Diagnosis Discharge Diagnosis Plan Right Ureteral Stone DS: Summary Hospital Course Reason for hospitalization: Urosepsis secondary to obstructive right ureteral stone Hospital Course: The patient was admitted from the ER on 12/03/21 after diagnosis of urosepsis and a right distal ureteral obstructing stone with moderate hydronephrosis and evidence of pyelonephritis on CT. She underwent a Cystoscopy, right distal ureteroscopy floor placement of wire, right ureteral stent placement 6 [place] contour, extraction of urine from right renal pelvis for culture, that day with Dr. Tena and tolerated the procedure well. She went to recovery in stable condition and then to the floor for further observation. Her urine culture grew Klebsiella but she has been on culture sensitive IV Levaquin. Her WBC has remained stable, and she is no longer febrile. She will be discharged home today on Ciprofloxacin to follow up next week for a repeat culture in the office and then be scheduled for definitive stone surgery on Thursday next week with Dr. Tena. She may resume activity no straining, diet as tolerated and she can resume all home medications. Time Spent with Patient Time attestation: Total time spent providing and/or coordinating discharge services: Time spent: Less than 30 minutes Exam Const: General: cooperative Resp: Effort & Inspection: normal respiratory effort Cardio: Rate: regular rate GI: GI Palp: Yes Soft to palpation and No Tenderness to palpation present (GI) : General: Yes CVA tenderness on the right Back/Spine/Pelvis: Back: CVA tenderness DS: Data Data Completed and Pending Labs on day of discharge: Labs from last 24 hours 12/05/21 08:14 WBC 11.1 H RBC 3.70 L Hgb 11.8 L Hct 34.5 L MCV 93.2 MCH 31.9 MCHC 34.2 RDW 12.7 Plt Count 146 L MPV 10.9 H Immature Gran % (Auto) 1.4 H Neut % (Auto) 83.7 H Lymph % (Auto) 6.6 L [place] % (Auto) 7.3 Eos % (Auto) 0.8 Baso % (Auto) 0.2 Lymph # (Auto) 0.73 L [place] # (Auto) 0.8 H Eos # (Auto) 0.1 Baso # (Auto) 0.0 Abs Immat Gran (auto) 0.16 H Absolute Neuts (auto) 9.3 H Absolute Nucleated RBC 0.0 Nucleated RBC % 0.0 Discharge Plan Discharge Attending physician on discharge: Ghulam Tena Discharging Clinician: Rachel Schmidt Patient Disposition: Home, Self-Care Activity: may shower Diet: as tolerated Discharge Instructions: Follow up in our office on 12/10/21 at 8am to repeat your urine culture. Finish your antibiotics. You should expect pain from your stent intermittently which you can take Oxybutynin three times a day as needed for as well as Ultram for moderate pain. You should also expect cloudy, bloody urine until your stent is removed, this is normal. If you develop a fever or severe pain, go to the ER. Patient Instructions: Antibiotic Form, Kidney Infection (DC) Stand Alone Forms: General Discharge Information Follow-up/Referrals: Ghulam Tena MD [Physician] - Discharge Medications: New oxybutynin chloride 5 mg Tablet 5 mg PO TID PRN (Reason: Abdominal Cramping) Qty: 30 0RF tramadol [Ultram] 50 mg tablet 50 mg PO Q6H PRN (Reason: pain) Qty: 20 0RF ciprofloxacin HCl [Cipro] 500 mg tablet 500 mg PO Q12H Qty: 14 0RF Continued dextroamphetamine-amphetamine 10 mg tablet 1 tablet BID Rx Instructions: CONFIRMED HOME MED WITH DR TENA clonazepam 0.5 mg tablet 1 tablet BID PRN (Reason: Anxiety) Rx Instructions: CONFIRMED HOME MED WITH DR TENA escitalopram oxalate 20 mg tablet 1 tablet PO DAILY Rx Instructions: CONFIRMED HOME MEDS WITH DR TENA Date of admission: 12/03/21 19:29 Primary Care Provider: PHYSICIAN,TAX ACCOUNTING ASSISTANT Admitting Provider: Candice Morrison Attending physician on admission: Mallika
--- NOTE | 2021-12-05 13:04 | PM.IMCN ---
Assessment and Plan Assessment and plan (1) UTI (urinary tract infection): Code(s): N39.0 - Urinary tract infection, site not specified Status: Acute Assessment and Plan: CBC, CMP, UA, reviewed Obtain urine culture if needed Follow temp curve, cultures, WBC, and VS Levofloxacin 750 IV daily, patient will be transitioned to oral antibiotics per Urology negative urine culture to date her initial catheterization specimen from her bladder revealed Gram-negative bacilli, pending sensitivity report patient did have a low-grade fever of 100.3 on 12/04/2021, and during the night. (2) Ureterolithiasis: Code(s): N20.1 - Calculus of ureter Status: Acute Assessment and Plan: urology services performed a right urethral stent placement. Patient will need ureteroscopy with laser stone and stone extraction as an outpatient, possibly next Thursday. Negative urine culture to date (3) Pyelonephritis: Code(s): N12 - Tubulo-interstitial nephritis, not specified as acute or chronic Status: Acute Assessment and Plan: 2/2 above (4) Anxiety: Code(s): F41.9 - Anxiety disorder, unspecified Status: Acute Assessment and Plan: stable HPI Data of Consult Consult date: 12/05/21 Requesting Physician: Ghulam Tena MD Primary Care Provider: FRONT DESK AGENT PHYSICIAN Consult Narrative Narrative: Amber Thomas is a 36 year old female who had a right ureteral stent placement performed by Urology. Patient presented to the emergency department for obstructing right ureteral calculus and a urinary tract infection. Today the patient feels significantly better and has been on IV P Levaquin pending urine culture and sensitivity report. patient is planned for discharge by Urology. Review of Systems Review of Systems: All systems reviewed & are unremarkable except as noted in HPI and below PMFSH Past Medical History Medical History ADHD (attention deficit hyperactivity disorder) Anxiety Depression Surgical History Surgical History History of cholecystectomy History of tonsillectomy Family History Family History Other Family history of kidney stones Family history of malignant neoplasm Social History Social History Smoking status: Former smoker Alcohol intake: never Substance use: never Spiritual care concerns: No Meds Home Medications and Allergies Home Medications Medication Instructions Recorded Confirmed Type clonazepam 0.5 mg tablet 1 tablet BID PRN Anxiety 12/03/21 12/03/21 History dextroamphetamine-amphetamine 10 1 tablet BID 12/03/21 12/03/21 History mg tablet escitalopram oxalate 20 mg tablet 1 tablet PO DAILY 12/03/21 12/03/21 History ciprofloxacin HCl 500 mg tablet 500 mg PO Q12H #14 tabs 12/05/21 Rx (Cipro) oxybutynin chloride 5 mg tablet 5 mg PO TID PRN Abdominal Cramping 12/05/21 Rx #30 tabs tramadol 50 mg tablet (Ultram) 50 mg PO Q6H PRN pain #20 tabs 12/05/21 Rx Allergies Allergy/AdvReac Type Severity Reaction Status Date / Time lansoprazole AdvReac Unknown Skin Verified 12/03/21 19:07 Reaction naproxen AdvReac Unknown nausea Verified 12/03/21 19:07 Vital Signs Vital Signs - 24 hr 12/04/21 16:00 12/04/21 20:20 12/04/21 21:42 Temperature 100.2 F H 99.5 F Pulse Rate 97 97 89 Respiratory Rate 18 18 16 Blood Pressure 100/54 L 100/62 Pulse Oximetry 96 96 96 Oxygen Delivery Room Air 12/05/21 05:48 12/05/21 11:51 Temperature 98 F 98.5 F Pulse Rate 86 Respiratory Rate 16 Blood Pressure 102/66 Pulse Oximetry 97 Oxygen Delivery Exam Narrative: General: No acute distress. Mental Status: Awake, alert and oriented to person,
--- NOTE | 2021-12-05 14:36 | PCCCNOTE ---
On 12/05/21, the student, [Violette Robins], provided care and completed [facility] documentation on this patient. I have reviewed the student's documentation and agree with the findings.
== END 2021-12-05 13:46 | disposition home or self-care (01) | DRG 661 ==
LOC: ANHED 16:30 → ANHSURGERY 17:04 → ANHIMU 19:54 → ANH3MEDSUR 12-05 12:31 → ANHIMU 12-06 10:55
PROVIDERS: Urology; Admitting Provider Student in an Organized Health Care Education/Training Program; Emergency Provider Emergency Medicine; Visit Provider Nurse Practitioner Adult Health
PROC: 0T938ZZ Drainage of Right Kidney Pelvis, Via Natural or Artificial Opening Endoscopic (ICD-10-PCS; CPT 52352; principal; 2021-12-03 17:30)
DX: N13.6 Pyonephrosis (principal); N12 Tubulo-interstitial nephritis, not specified as acute or chronic; Z87.891 Personal history of nicotine dependence; F90.9 Attention-deficit hyperactivity disorder, unspecified type; F41.9 Anxiety disorder, unspecified; F32.A Depression, unspecified; B96.89 Other specified bacterial agents as the cause of diseases classified elsewhere; Z79.899 Other long term (current) drug therapy
CPT/HCPCS: 36415; 74177; 80053; 81001; 81025; 83690; 84703; 85025; 87077; 87086; 87088; 87186; 96361; 96365; 96375; 99285; A9270; C1758; C1769; C2617; J0696; J1650; J1956; J2210; J2250; J2270; J2405; J2704; J3010; J7030; J7120; J7121; Q9967

== ENCOUNTER 2021-12-17 00:09 | Day surgery (SDC) | payer OTHER, SELFPAY ==
[2021-12-10 15:16] VITALS: BMI 17.7
--- NOTE | 2021-12-10 15:25 | PC.NURSE ---
Addendum entered by Jemma Bui RN 12/12/21 15:28: PT TO ARRIVE AT 0830 ON 12/17/21 FOR SURGERY AT 1030. Original Note: Report to the Outpatient Waiting Room, entrance under the green pavilion located off [facility], at time 0830 on date 12/13/21. OR Time: 1030. - You and your visitor will be asked a series of questions to screen for COVID 19 for your protection. - Only one visitor is allowed at this time. - The patient visitor is requested to leave or wait in car when not with patient. - A mask is required within the hospital. Patients may have clear liquids (water, carbonated beverages, clear teas, apple juice) until 3 hours prior to surgery with a maximum of 20 ounces. - No food from midnight until time of surgery Take the following medications with a SIP of water the morning of surgery: CIPRO, ESCITALOPRAM, CLONAZEPAM, PAIN PILL (IF NEEDED) Medications to discontinue per physician: N/A Date to take last dose: N/A Please no make-up, nail iraqi, hairspray, perfume, deodorant, or body powder the day of surgery. No jewelry (including any body piercings) or valuables the day of surgery, leave them at home. Please take a shower or bath the night before, or the morning of, surgery with an antibacterial soap. Wear comfortable, loose fitting clothing. - Jewelry must be removed prior to entering the operating room. Rings and piercings that are not removed may be cut off. - The hospital will not accept responsibility for valuables. - Please leave all valuables, including medications, at home the day of surgery. If you are going home after surgery, a licensed winch driver must drive you home. - NO public transportation without another adult. - We recommend that an adult stay with you for 24 hours following discharge. - We also recommend that you do not drive, make important decision, drink alcoholic beverages, or take any drugs that were not prescribed by your health care provider for at least 24 hours after your discharge time. Follow any additional instructions given to you from your surgeon. If you or anyone in your household have experienced Covid symptoms in the past week, please notify your surgeon or the nurse liaison at the phone number below for possible testing. Telephone instructions given to PT - TRINA PEREZ and asked if any additional questions and then verbalized understanding. Patient advised to call surgeon office or pre surgery nurse liaison [phone] if any additional questions.
--- NOTE | 2021-12-12 15:27 | PC.NURSE ---
Pt states no changes in medications or health history since initial interview. Pre-op instructions reviewed with pt. Pt denies further questions at this time.
[2021-12-17] VITALS (9 sets, daily range): BP systolic 90–105; BP diastolic 49–72; PULSE 51–99; RESP 11–20; TEMP 36.2–37.4; O2SAT 100
--- NOTE | ~2021-12-17 | XR_ITS ---
EXAMINATION: XR retrograde pyelo w/stent RT DATE: 12/17/2021 11:17 INDICATION: Right internal ureteral stent placement TECHNIQUE: Fluoroscopic images from a right stent placement are submitted for review. 18 seconds of f luoroscopy time. 5 fluoroscopic images FINDINGS: There is a right double-J internal ureteral stent projecting in expected position, with proximal [place] loop at the level of the renal pelvis and distal loop in the pelvis within the bladder lumen. IMPRESSION: 1. Right internal ureteral stent placement. Please refer to real-time procedural findings for rosetta duron. Reviewed, dictated and finalized at location A. IMPRESSION: 1. Right internal ureteral stent placement. Please refer to real-time procedu ral findings for details.
--- NOTE | 2021-12-17 07:00 | P.PNAN_ITS ---
Anes - Initial Pre Proc Eval Procedure: Operation Date: 12/17/21 10:30 Proposed Procedures p Cystoscopy, Right Retrograde Pyelogram, Right Ureteroscopy with Right Stone Extraction, Laser Stent Exchange - Ghulam Tena MD Date/Time: 12/17/21 07:00 Surgeon: Ghulam Tena MD Pre Op Diagnosis: Right Ureteral Stone Patient Data Age: 36 Gender: F Height: 1.63 m Weight: 47 kg Allergies Allergy/AdvReac Type Severity Reaction Status Date / Time ciprofloxacin Allergy Severe SWELLING Verified 12/17/21 08:41 TONGUE/SWELLING & REDNESS IN MOUTH/CHEEKS naproxen AdvReac Mild nausea Verified 12/17/21 08:41 Home Medications Medication Instructions Recorded Confirmed Type clonazepam 0.5 mg tablet 1 tablet PO BID PRN Anxiety 12/03/21 12/12/21 History dextroamphetamine-amphetamine 10 1 tablet PO BID 12/03/21 12/12/21 History mg tablet escitalopram oxalate 20 mg tablet 1 tablet PO DAILY 12/03/21 12/12/21 History ciprofloxacin HCl 500 mg tablet 500 mg PO Q12H #14 tabs 12/05/21 12/12/21 Rx (Cipro) oxybutynin chloride 5 mg tablet 5 mg PO TID PRN Abdominal Cramping 12/05/21 12/12/21 Rx #30 tabs tramadol 50 mg tablet (Ultram) 50 mg PO Q6H PRN pain #20 tabs 12/05/21 12/12/21 Rx Patient hx anesthesia problems: none Family hx anesthesia problems: none Results Review: All pre-operative results and documents have been reviewed as part of the pre- operative evaluation. [facility] Past Medical History Medical History ADHD (attention deficit hyperactivity disorder) Anxiety Depression Surgical History Surgical History History of cholecystectomy History of tonsillectomy Family History Family History Other Family history of kidney stones Family history of malignant neoplasm Social History Social History Years smoked: 6 Smoking status: Former smoker Tobacco type: cigarettes Smoking end date: 12/03/21 Alcohol intake: never Alcohol use details: NOT CURRENTLY Substance use: current Substance use type: marijuana Other substance usage details: GUMMY Living arrangements: with family Spiritual care concerns: No Anes - Eval Final PreProcedure Day of Procedure 12/17/21 07:00 Patient weight: overweight Heart: regular rate and rhythm Lungs: clear to auscultation Airway: Mallampati scale class II Neurological: alert and oriented Last oral intake: >/= 8 hours ASA classification: II Emergent: no Anesthetic plan: proceed Anesthesia type and monitoring: general LMA and standard monitoring Results Review: All pre-operative results and documents have been reviewed as part of the pre- operative evaluation. Informed Consent: The patient's anesthetic plan and its attendant risks and benefits were discussed with the patient/family/POA. Questions were solicited and answers provided to the satisfaction of the patient/family/POA.
--- NOTE | 2021-12-17 08:20 | WPDHPUPDATE1 ---
History and Physical Update Update Date/Time: 12/17/21 08:20 History and Physical has been reviewed, including an updated exam of the patient. There are NO changes in the patient's condition. Risks, benefits, and alternatives have been discussed and questions answered. Patient agrees to proceed with procedure.
[2021-12-17] MEDS: LACTATED RINGERS 1,000 ML 30 ML IV CONT (09:20)
[2021-12-17] MEDS: ceFAZolin 2 GM/D5W 50 ML 2 GM/50 ML BAG IVPB (10:47)
[2021-12-17] MEDS: LIDOCAINE HCL 2% GEL UROJET 10 ML PKG MUCOUS MEM (11:01)
--- NOTE | 2021-12-17 11:14 | P.OP_ITS ---
Procedure Note - Detailed Date of Procedure 12/17/21 Pre-op Diagnosis Right Ureteral Stone Post-op Diagnosis Same Procedure Performed Cystoscopy, right retrograde pyelogram, right ureteroscopy with stone extraction, right ureteral stent exchange 4.8 Persian contour Surgeon Ghulam Tena MD Anesthesia General Description of Procedure Patient is taken to the operative suite correctly identified. Once anesthesia was obtained she was placed in dorsal lithotomy position and prepped and draped usual sterile fashion. Twenty-two Persian scope inserted in the bladder. The stent was grasped and brought out the meatus. A Glidewire was inserted through the stent up into the renal pelvis. Rigid ureteral scope was then placed. The stone was visualized. Using escape basket we retrieved the stone its entirety and sent for analysis. Reinspection revealed no residual stones. Pyelogram was then performed to confirm placement the stent. 4.8 Persian contour stent was then placed with the proximal end coiled in the renal pelvis and the distal end in the bladder. 2% viscous lidocaine was inserted into the bladder and patient was taken recovery stable condition. She will follow-up in 1 week for stent removal. Drains Yes Packing No Pathology Yes Complications No immediate complications Condition Stable Disposition PACU
== END 2021-12-17 12:56 | disposition home or self-care (01) ==
PROVIDERS: Visit Provider Urology
PROC: (CPT 52352; principal; 2021-12-17 10:30)
DX: N20.1 Calculus of ureter (principal); F90.9 Attention-deficit hyperactivity disorder, unspecified type; F41.8 Other specified anxiety disorders
CPT/HCPCS: 52352; 52332; 74420; 82365; 88300; A9270; C1758; C1769; C2617; J0690; J1100; J2250; J2405; J2704; J3010; J7120